=== PATIENT | female | born 1965 | race Caucasian/White ===

== ENCOUNTER 2017-11-28 11:10 | Observation (INO) ==
[2017-11-28] MEDS ORDERED: Aspirin 81 MG TAB.CHEW PO ONE (12:26)
--- NOTE | 2017-11-28 12:33 | Emergency Department Note ---
Disposition Clinical Impression: Acute coronary syndrome Disposition: Admitted As Inpatient Condition: Fair Referrals: Suzan Luke DO [Primary Care Provider] - Forms: ED Satisfaction Letter Time of Disposition: 14:21 Chest Pain HPI - General Chief Complaint: ED Chest Pain Stated Complaint: L arm/shoulder/back pain Source: patient Limitations: no limitations Vital Signs Reviewed: Yes Nursing Notes Reviewed: Yes - History of Present Illness HPI Narrative: She has chest pain which is a tightness sensation and has been present intermittently for the last 1 week with episodes lasting up to several hours at a time with radiation to left shoulder and neck and left jaw with associated dyspnea but no diaphoresis. No pleuritic aspect. Does not radiate straight through to the back but the shoulder pain does extend over into the back. The discomfort is worse with exertion and no pain or swelling of the lower extremities. Social history: No smoking or alcohol or drugs. Family history: Positive for heart disease with her mother Severity scale (1-10): 7 - Related Data Home Medications Medication Instructions Recorded Confirmed Aspirin [Lo-Dose Aspirin EC] 81 mg PO DAILY 11/28/17 11/28/17 Atorvastatin [Lipitor] 40 mg PO HS 11/28/17 11/28/17 Cetirizine HCl [All Day Allergy] 10 mg PO DAILY 11/28/17 11/28/17 Duloxetine HCl [Cymbalta] 60 mg PO BID 11/28/17 11/28/17 LORazepam [Ativan] 0.5 mg PO BID PRN 11/28/17 11/28/17 Montelukast [Singulair] 10 mg PO DAILY 11/28/17 11/28/17 Mv,Fe,Min/Lutein [A Thru Z Select 1 tab PO DAILY 11/28/17 11/28/17 Women's Tablet] NIFEdipine [Nifedipine ER] 60 mg PO DAILY 11/28/17 11/28/17 Spironolact/Hydrochlorothiazid 1 tab PO DAILY 11/28/17 11/28/17 [Aldactazide 25-25 Tablet] Allergies Allergy/AdvReac Type Severity Reaction Status Date / Time Sulfa (Sulfonamide Allergy Hives Verified 11/28/17 12:55 Antibiotics) Review of Systems: Constitutional: No fever Vision: No blurred vision ENT: No rhinorrhea Respiratory: No cough Allergic: No allergies : No blood in urine GI: No blood in stool Hematologic: No bruising Dermatologic: No skin rash Musculoskeletal: No pain in the extremities Neuro: No numbness of the extremities Chest Pain PMH - Past Medical History Medical history: Reports: hyperlipidemia, hypertension Psychiatric history: Reports: anxiety, depression - Social History Smoking Status: Never smoker Alcohol use: Reports: occasionally Drug use: Reports: none Physical Exam CONSTITUTIONAL: Well-appearing; well-nourished; A&O X 3, in no apparent distress HEAD: Normocephalic; atraumatic EYES: PERRL, no scleral icterus NOSE: The nose is normal in appearance without rhinorrhea NECK: No JVD or distended neck veins RESP: Normal chest excursion with respiration; breath sounds clear and equal bilaterally; no wheezes, rhonchi, or rales CARD: Regular rhythm, without murmurs, rub or gallop ABD: Non-distended; non-tender, soft, without rigidity, rebound or guarding,no pulsatile mass CHEST: Mild pain with palpation, normal appearance anterior chest wall SKIN: Normal for age and race; warm and dry without diaphoresis ; no apparent lesions EXTREMITIES: Pulses are 2 plus and equal times 4 extremities, no peripheral edema or calf muscle pain - General Limitations: no limitations General appearance: alert Course Vital Signs Temperature 98.6 F 11/28/17 11:12 Pulse Rate 79 11/28/17 11:12 Respiratory Rate 18 11/28/17 11:12 Blood Pressure 138/85 11/28/17 11:12 O2 Sat by Pulse Oximetry 98 11/28/17 11:12 Temperature 98.6 F 11/28/17 11:12 Pulse Rate 76 11/28/17 14:13 Respiratory Rate 16 11/28/17 14:13 Blood Pressure 133/84 11/28/17 14:13 O2 Sat by Pulse Oximetry 96 11/28/17 14:13 Oxygen Delivery Oxygen Delivery Room Air Chest Pain - MDM Narrative Medical decision making narrative: I did review the EKG which does show normal sinus rhythm without acute ischemic changes. No T wave inversion. No evidence of arrhythmia. Patient's symptoms are very concerning and with the intermittent nature this is also concerning. Labs are pending. Chest x-ray. Patient will receive one aspirin 324 mg. 1232 Patient does have concerning findings for acute coronary syndrome and I did review the test results as well as the EKG and the chest x-ray which came back negative and I did speak with the hospitalist who accepts the patient for admission. The patient has received one aspirin. I did check on her again. She is pain-free at this time. I do not suspect pulmonary embolism, there is no pleuritic aspect or other concern. Her oxygen saturation is 97% on room air. The patient is admitted. 1421 - Medical Records Medical records reviewed: Yes I reviewed the patient's medical records. - Lab Data Lab results reviewed: Yes I reviewed the patient's lab results. Result diagrams: 11/28/17 12:35 11/28/17 12:35 Lab Results 11/28/17 11/28/17 Range/Units 12:35 12:35 WBC 9.5 (4.3-11.1) K/mcL RBC 5.14 H (3.82-4.97) M/mcL Hgb 14.6 (11.5-15.4) g/dL Hct 44.5 (35.3-44.9) % MCV 86.6 (83.0-100.0) fL MCH 28.4 (28.0-33.3) pg MCHC 32.8 (31.6-35.5) g/dL RDW 13.6 (11.5-14.5) % Plt Count 349 (140-400) K/mcL MPV 9.9 (9.4-12.4) fL Immature Gran % 0.2 (0-4) % Seg Neutrophils % 62.9 % Lymphocytes % 30.7 % Monocytes % 4.2 % Eosinophils % 1.2 % Basophils % 0.8 % Neutrophils # 6.0 (1.6-8.9) K/mcL Lymphocytes # 2.9 (0.6-4.6) K/mcL Monocytes # 0.4 (0.0-1.3) K/mcL Eosinophils # 0.1 (0.0-0.6) K/mcL Basophils # 0.1 (0.0-0.2) K/mcL Sodium 137 (136-145) mEq/L Potassium 3.6 (3.5-5.1) mEq/L Chloride 99 (98-107) mEq/L Carbon Dioxide 27 (23-29) mEq/L BUN 14 (6-20) mg/dL Creatinine 0.85 (0.60-1.20) mg/dL Est GFR ( Amer) > 60 (> 60) Est GFR (Non-Af Amer) > 60 (> 60) BUN/Creatinine Ratio 16 (6-26) Glucose 149 H (70-105) mg/dL Calculated Osmolality 287 (280-300) Calcium 9.6 (8.6-10.3) mg/dL Troponin I < 0.03 (< 0.04) ng/mL - Radiology Data Radiology results reviewed: Yes I reviewed the patient's radiology results.
[2017-11-28 13:08] LABS: Basophils # 0.1 K/mcL (0.0-0.2); Basophils % 0.8 %; Eosinophils # 0.1 K/mcL (0.0-0.6); Eosinophils % 1.2 %; Hematocrit 44.5 % (35.3-44.9); Hemoglobin 14.6 g/dL (11.5-15.4); Immature Granulocytes % 0.2 % (0-4); Lymphocytes # 2.9 K/mcL (0.6-4.6); Lymphocytes % 30.7 %; Mean Corpuscular HGB Conc 32.8 g/dL (31.6-35.5); Mean Corpuscular Hemoglobin 28.4 pg (28.0-33.3); Mean Corpuscular Volume 86.6 fL (83.0-100.0); Mean Platelet Volume 9.9 fL (9.4-12.4); Monocytes # 0.4 K/mcL (0.0-1.3); Monocytes % 4.2 %; Platelet Count 349 K/mcL (140-400); Red Blood Count 5.14 M/mcL (3.82-4.97); Red Cell Distribution Width 13.6 % (11.5-14.5); Segmented Neutrophils % 62.9 %
--- NOTE | 2017-11-28 13:19 | Electrocardiograph Report ---
[facility] Test Date: 2017-11-28 Pat Name: Amy Coleman Department: 104 Room: Gender: F Screen Vent Binder: : [id number] Requested By: Ariel Santamaria Order Number: [id number] Reading MD: Lance Ibarra MD Measurements Intervals [place] Rate: 78 P: 29 UT: 168 QRS: 13 QRSD: 96 T: 40 QT: 387 QTc: 420 Interpretive Statements SINUS RHYTHM wnl Electronically Signed On 11-28-2017 13:18:22 EST by Lance Ibarra MD
[2017-11-28 13:27] LABS: Troponin I < 0.03 ng/mL (< 0.04)
[2017-11-28 13:29] LABS: BUN/Creatinine Ratio 16 (6-26); Blood Urea Nitrogen 14 mg/dL (6-20); Calcium 9.6 mg/dL (8.6-10.3); Carbon Dioxide 27 mEq/L (23-29); Chloride 99 mEq/L (98-107); Glucose 149 mg/dL (70-105); Osmolality,Calculated 287 (280-300); Potassium 3.6 mEq/L (3.5-5.1); Sodium 137 mEq/L (136-145); eGFR For African Americans > 60 (> 60); eGFR For Non-African Americans > 60 (> 60)
[2017-11-28] MEDS ORDERED: Ondansetron 4 MG/2 ML VIAL IVP PRN (14:40)
[2017-11-28] MEDS ORDERED: Acetaminophen 325 MG TABLET PO PRN (14:40)
[2017-11-28] MEDS ORDERED: *HR* HYDROcodone/Acet 5/325 mg TABLET PO PRN (14:40)
[2017-11-28] MEDS ORDERED: *HR* OxyCODONE Immed Rel 5 MG TABLET PO PRN (14:40)
[2017-11-28] MEDS ORDERED: Naloxone 0.4 MG/ML INJ IVP PRN (14:40)
[2017-11-28] MEDS ORDERED: Nitroglycerin 0.4 MG TAB.SUBL SL PRN (14:44)
[2017-11-28] MEDS ORDERED: *HR* LORazepam 0.5 MG TABLET PO PRN (14:45)
--- NOTE | 2017-11-28 14:50 | Internal Med History&Physical ---
Date of Encounter: 11/28/17 Time of Encounter: 14:48 Assessment and Plan (1) Chest pain Current visit: Yes Status: Acute Nitroglycerin as needed, telemetry, troponins Echocardiogram, schedule stress test Continue aspirin, check lipid panel Omeprazole for GI prophylaxis and Lovenox for DVT prophylaxis. The patient will be admitted for observation. Full code. Time spent on this admission 40 minutes Qualifiers: Chest pain type: other chest pain Qualified Code(s): R07.89 - Other chest pain; R07.8 - Other chest pain (2) Hypertension Current visit: Yes Status: Acute Continue home meds Qualifiers: Hypertension type: essential hypertension Qualified Code(s): I10 - Essential (primary) hypertension (3) Hyperlipidemia Current visit: Yes Status: Acute Qualifiers: Hyperlipidemia type: unspecified Qualified Code(s): E78.5 - Hyperlipidemia , unspecified (4) Depression Current visit: Yes Status: Acute Qualifiers: Depression Type: major depressive disorder Major depression recurrence: recurrent Active/Remission status: in full remission Qualified Code(s): F33.42 - Major depressive disorder, recurrent, in full remission (5) Hyperglycemia Current visit: Yes Status: Acute Check a hemoglobin A1c in the morning as the patient does not have a diagnosis of diabetes Internal Medicine - H&P: HPI Chief complaint: Chest pain Admitted From: Emergency Dept History of present illness: Ms. Coleman is a 52 year old female with a past medical history of hypertension and hyperlipidemia, anxiety, depression who comes to the emergency room complaining of chest pain, pressure-like radiating to the left arm and shoulder also the neck and the left side of her gel for the past week that lasts hours and gets worse on exertion. The patient denies any chest pain at the moment, but when he gets bad it is as high as 8 out of 10 in intensity. Chest x-ray and EKG are unremarkable: The patient does not have a diagnosis of diabetes but her glucose is 149. Blood pressure is 138/85, she has been feeling nauseous, no other symptoms. Received aspirin at the emergency room. Troponin is normal Past Med Surg Social Fam HX - Past Medical History Medical history: hyperlipidemia, hypertension Psychiatric history: anxiety, depression - Past Surgical History Surgical History: (2), hysterectomy, other (Hysterectomy) - Social History Smoking Status: Never smoker Smokeless Tobacco Status: No Alcohol use: occasionally Drug use: none - Additional Family History Additional family history: Mother with CVA and heart disease Internal Medicine - H&P: Meds Aspirin [Lo-Dose Aspirin EC] 81 mg PO DAILY 11/28/17 [History] Atorvastatin [Lipitor] 40 mg PO HS 11/28/17 [History] Cetirizine HCl [All Day Allergy] 10 mg PO DAILY 11/28/17 [History] Duloxetine HCl [Cymbalta] 60 mg PO BID 11/28/17 [History] LORazepam [Ativan] 0.5 mg PO BID PRN 11/28/17 [History] Montelukast [Singulair] 10 mg PO DAILY 11/28/17 [History] Mv,Fe,Min/Lutein [A Thru Z Select Women's Tablet] 1 tab PO DAILY 11/28/17 [ History] NIFEdipine [Nifedipine ER] 60 mg PO DAILY 11/28/17 [History] Spironolact/Hydrochlorothiazid [Aldactazide 25-25 Tablet] 1 tab PO DAILY [History] 3 Allergy/AdvReac Type Severity Reaction Status Date / Time Sulfa (Sulfonamide Allergy Hives Verified 11/28/17 12:55 Antibiotics) All Systems PM: A 10-system review of systems was performed and is negative for pertinent findings except as documented above in the HPI. Review of systems: No shortness of breath, no fevers or chills, other systems out of the 10 reviewed were negative - Constitutional Vitals: Temp Pulse Resp BP Pulse Ox 98.6 F 76 16 133/84 96 11/28/17 11:12 11/28/17 14:13 11/28/17 14:13 11/28/17 14:13 11/28/17 14:13 General appearance: Present: A&O X 3 - Head Head exam: Present: atraumatic, normocephalic - Eye Eye exam: Present: PERRL, conjuntiva pink, sclera anicteric Pupils: Present: PERRL - Neck Neck exam general surgery: Present: supple, trachea midline. Absent: lymphadenopathy - Respiratory Respiratory exam: Present: CTAB. Absent: accessory muscle use, rales, rhonchi, wheezes - Cardiovascular Cardiovascular exam: Present: RRR, +S1, +S2. Absent: diastolic murmur, gallop, rubs, systolic murmur - GI/Abdominal GI/Abdominal exam: Present: normal bowel sounds, soft, no peritoneal signs. Absent: distended, tenderness - Extremities Exam Extremities exam: Present: warm, radial pulses palpable and symmetrical. Absent : calf tenderness, cyanotic, pedal edema - Neurological Exam Neurological exam: Present: CN II-XII intact, oriented X3, no focal deficits. Absent: pronater drift, facial droop, speech deficit - Skin Skin exam: Present: dry, intact Internal Med - H&P Results - Labs CBC & Chem 7: 11/28/17 12:35 11/28/17 12:35
[2017-11-28] MEDS: *HR* Enoxaparin 40 MG/0.4 ML SYRINGE SQ SCH (17:59)
[2017-11-29 00:36] LABS: BUN/Creatinine Ratio 18 (6-26); Blood Urea Nitrogen 15 mg/dL (6-20); Calcium 9.3 mg/dL (8.6-10.3); Carbon Dioxide 29 mEq/L (23-29); Chloride 100 mEq/L (98-107); Chol/HDL Ratio 4.6 (0-4.9); Cholesterol 181 mg/dL (< 200); Glucose 148 mg/dL (70-105); HDL Cholesterol 39 mg/dL (40-59); LDL Cholesterol,Calculated 110 mg/dL (0-99); Osmolality,Calculated 290 (280-300); Potassium 3.4 mEq/L (3.5-5.1); Sodium 138 mEq/L (136-145); Triglycerides 159 mg/dL (< 150); eGFR For African Americans > 60 (> 60); eGFR For Non-African Americans > 60 (> 60)
[2017-11-29] MEDS ORDERED: Regadenoson 0.4 MG/5 ML SYRINGE IVP ONE (05:37)
[2017-11-29] MEDS: *HR* Enoxaparin 40 MG/0.4 ML SYRINGE SQ SCH (06:03)
[2017-11-29] MEDS ORDERED: NON-FORMULARY MEDICATION 1 EACH EACH (Spironolact/Hydrochlorothiazid [Aldactazide 25-25 Ta PO SCH (09:00)
[2017-11-29] MEDS: Loratadine 10 MG TABLET PO SCH (09:27)
[2017-11-29] MEDS: hydroCHLOROthiazide 25 MG TABLET PO SCH (09:28)
[2017-11-29] MEDS: Spironolactone 25 MG TABLET PO SCH (09:28)
[2017-11-29] MEDS: Aspirin Enteric Coated 325 MG Tablet PO SCH (09:28)
[2017-11-29] MEDS: NIFEdipine XL (24 HR) 60 MG TAB.ER.24 PO SCH (09:28)
[2017-11-29 09:41] LABS: Hemoglobin A1C 6.5 %
--- NOTE | 2017-11-29 17:16 | Internal Med Progress Note ---
Date of Encounter: 11/29/17 Time of Encounter: 17:13 - Assessment and plan (1) Chest pain Current Visit: Yes Status: Acute Assessment and plan: Patient had step 1 of her two-part stress test today. Troponins are negative Echocardiogram report reviewed Continue aspirin lipid panel Continue telemetry monitoring Nitroglycerin as needed Qualifiers: Chest pain type: other chest pain Qualified Code(s): R07.89 - Other chest pain; R07.8 - Other chest pain (2) Hyperglycemia Current Visit: Yes Status: Acute Assessment and plan: Glucose is slightly elevated. 11 A1c is 6.5 We will defer to her PCP for management as he do not want to start a oral agent in house. Diabetic diet (3) Hyperlipidemia Current Visit: Yes Status: Acute Assessment and plan: With panel reviewed triglycerides 159, LDL 110, HDL 39 Continue Lipitor Qualifiers: Hyperlipidemia type: unspecified Qualified Code(s): E78.5 - Hyperlipidemia , unspecified (4) Hypertension Current Visit: Yes Status: Acute Assessment and plan: Pressure is stable next line continue home meds Qualifiers: Hypertension type: essential hypertension Qualified Code(s): I10 - Essential (primary) hypertension (5) DVT prophylaxis Current Visit: Yes Status: Acute Assessment and plan: heparin subcut - Subjective Interval history: Resting in bed complaining of a slight headache. She states she does have a little bit of shoulder discomfort. She states she is to finish her stress test tomorrow. She was concerned there was a problem and I explained why we do a two -step stress test and now she is much more relieved. - Constitutional Vitals: Temp Pulse Resp BP Pulse Ox 98.7 F 78 20 126/84 95 11/29/17 15:27 11/29/17 15:27 11/29/17 15:27 11/29/17 15:27 11/29/17 15:27 General appearance: Present: cooperative, A&O X 3, pleasant, obese, answers questions appropriately - Head Head exam: Present: atraumatic, normocephalic - Eye Eye exam: Present: PERRL, conjuntiva pink, sclera anicteric Pupils: Present: PERRL - Neck Neck exam general surgery: Present: supple, trachea midline. Absent: lymphadenopathy - Respiratory Respiratory exam: Present: CTAB. Absent: accessory muscle use, rales, rhonchi, wheezes - Cardiovascular Cardiovascular exam: Present: RRR, +S1, +S2. Absent: diastolic murmur, gallop, rubs, systolic murmur - GI/Abdominal GI/Abdominal exam: Present: normal bowel sounds, soft, no peritoneal signs. Absent: distended, tenderness - Extremities Exam Extremities exam: Present: warm, radial pulses palpable and symmetrical. Absent : calf tenderness, cyanotic, pedal edema - Neurological Exam Neurological exam: Present: alert, CN II-XII intact, normal gait, oriented X3, no focal deficits, strengths equal and symetr throughout. Absent: pronater drift, facial droop, speech deficit - Skin Skin exam: Present: dry, intact, normal color, warm Internal Medicine: Result - Labs CBC & Chem 7: 11/28/17 12:35 11/29/17 00:05 Labs: BMP 11/29/17 00:05 Sodium 138 Potassium 3.4 L Chloride 100 Carbon Dioxide 29 BUN 15 Creatinine 0.83 Glucose 148 H Calcium 9.3 Cardiac Enzymes 11/28/17 11/29/17 11/29/17 Range/Units 17:57 00:05 06:01 Troponin I < 0.03 < 0.03 < 0.03 (< 0.04) ng/mL - Impressions Impressions Echocardiogram 11/28/17 14:53 Impressions: LVEF 60-65%. Normal LV chamber size, wall thickness and function. Mild left ventricular diastolic dysfunction. Normal right ventricular structure and function. No evidence of pulmonary hypertension. No significant valvular dysfunction. Left Ventricular Wall Motion: Rest Echo Findings All wall segments showed normal motion. Findings: Study Quality * Technically adequate exam. ECG Findings * Normal sinus rhythm. Left Ventricle * LVEF 60-65%. * Normal LV chamber size, wall thickness and function. * Mild left ventricular diastolic dysfunction. Right Ventricle * Normal right ventricular structure and function. Left Atrium * Mildly dilated left atrium. Right Atrium * Normal right atrial size. Interatrial Septum * Interatrial septum not well evaluated. Aortic Valve * Aortic valve not well visualized. * No aortic regurgitation. * No aortic stenosis. Mitral Valve * Normal mitral valve structure and function. * No mitral regurgitation. * No mitral stenosis. Tricuspid Valve * Normal tricuspid valve structure and function. * Trace tricuspid regurgitation. * No evidence of pulmonary hypertension. Pulmonic Valve * Pulmonic valve is not well visualized. Aorta * Normally sized aortic root. Pericardium * The pericardium appears normal. IVC * Normal IVC dimensions and inspiratory collapse. Pulmonary Artery * Normal visualized portions of the main pulmonary artery. Consult Discharge Plan - Plan Referrals: Suzan Luke DO [Primary Care Provider] -
[2017-11-30] MEDS: *HR* Enoxaparin 40 MG/0.4 ML SYRINGE SQ SCH (05:59)
[2017-11-30] MEDS: hydroCHLOROthiazide 25 MG TABLET PO SCH (08:36)
[2017-11-30] MEDS: NIFEdipine XL (24 HR) 60 MG TAB.ER.24 PO SCH (08:36)
[2017-11-30] MEDS: Aspirin Enteric Coated 325 MG Tablet PO SCH (08:36)
[2017-11-30] MEDS: Loratadine 10 MG TABLET PO SCH (08:36)
[2017-11-30] MEDS: Spironolactone 25 MG TABLET PO SCH (08:37)
[2017-11-30 11:10] VITALS: BP 100/67
--- NOTE | 2017-11-30 13:16 | Discharge Summary ---
- NOTES TO OUTPATIENT PROVIDER Notes to Outpatient Provider: HGB A1c 6.5, LP elevated triglycerides 159, LDL cholesterol 110, HDL cholesterol 39. Glucose fasting 149 and 148 Date of Encounter: 11/30/17 Time of Encounter: 13:13 - Discharge Diagnosis (1) Chest pain Priority: Primary Status: Acute Comments: Stress test completed Perfusion imaging was negative for ischemia or infarct Pharmacologic stress ECG is negative for ischemia at level of heart rate achieved no appreciable change and pharmacological ECG from baseline Gaited EF is greater than 70 Patient states she has been having some shoulder pain and is going to follow-up with the orthopod, she was wondered if this could be referred pain from her shoulder. The pain is not reproducible Qualifiers: Chest pain type: other chest pain Qualified Code(s): R07.89 - Other chest pain; R07.8 - Other chest pain (2) Hyperglycemia Priority: Primary Status: Acute Comments: Hemoglobin A1c 6.5, fasting glucose elevated, told her she is likely a diabetic and needs a follow-up with her PCP (3) Hyperlipidemia Priority: Primary Status: Chronic Comments: Continue Lipitor Qualifiers: Hyperlipidemia type: unspecified Qualified Code(s): E78.5 - Hyperlipidemia , unspecified (4) Hypertension Priority: Primary Status: Chronic Comments: Blood pressure stable Qualifiers: Hypertension type: essential hypertension Qualified Code(s): I10 - Essential (primary) hypertension (5) Obesity Priority: Primary Status: Acute Comments: Discussed with the patient that her obesity is contributing to her blood glucose and diabetes, her blood pressure, and her elevated lipid panel. Discussed need to modify her lifestyle by a healthier diet and more exercise. Instructed her to follow up with her PCP regarding her blood sugar elevation. She verbalized understanding that her sister is diabetic and is already lost part of her foot. She said I know what a need to do I just need to do it. Qualifiers: Obesity type: unspecified obesity type Serious obesity comorbidity presence : without serious comorbidity Body mass index: BMI 40.0-44.9 Qualified Code( s): E66.9 - Obesity, unspecified; Z68.41 - Body mass index (BMI) 40.0-44.9, adult; Z68.41 - Body mass index (BMI) 40.0-44.9, adult; Z68.41 - Body mass index (BMI) 40.0-44.9, adult; Z68.41 - Body mass index (BMI) 40.0-44.9, adult Hospital course: Ms. Coleman is a 52 year old female admitted with diagnosis of chest pain. He has come morbidities of hypertension, hyperlipidemia, anxiety, depression and previous history of hyperglycemia. 18 was pressure like radiating to her left arm and shoulder and neck. She states she has been having some chronic shoulder pain and was going to come follow-up with orthopedic service. Echocardiogram was reviewed with LVEF 60-65%, normal LV chamber size wall thickness and function. Mild left ventricular diastolic dysfunction. Normal right ventricular structure and function, no evidence of pulmonary hypertension and no significant valvular dysfunction. Stress test was negative for infarct or ischemia. She will follow-up with her primary care physician with elevated lipids on Lipitor, elevated triglycerides, elevated fasting glucose and hemoglobin A1c of 6.5. Discussed weight loss measures and activity lifestyle changes. She verbalized understanding of knowing what to do she just needs to do it. Discharge discussed with: patient, family, nurse - Time Spent with Patient Total time spent providing and/or coordinating discharge services: Less than 30 minutes - Discharge Medications Home Medications: Aspirin [Lo-Dose Aspirin EC] 81 mg PO DAILY 11/28/17 [History] Atorvastatin [Lipitor] 40 mg PO HS 11/28/17 [History] Cetirizine HCl [All Day Allergy] 10 mg PO DAILY 11/28/17 [History] Duloxetine HCl [Cymbalta] 60 mg PO BID 11/28/17 [History] LORazepam [Ativan] 0.5 mg PO BID PRN 11/28/17 [History] Montelukast [Singulair] 10 mg PO DAILY 11/28/17 [History] Mv,Fe,Min/Lutein [A Thru Z Select Women's Tablet] 1 tab PO DAILY 11/28/17 [ History] NIFEdipine [Nifedipine ER] 60 mg PO DAILY 11/28/17 [History] Spironolact/Hydrochlorothiazid [Aldactazide 25-25 Tablet] 1 tab PO DAILY [History] Allergies/Adverse Reactions: 3 Allergy/AdvReac Type Severity Reaction Status Date / Time Iodinated Contrast- Oral and Allergy Difficulty Verified 11/28/17 18:22 IV Dye Breathing Sulfa (Sulfonamide Allergy Hives Verified 11/28/17 12:55 Antibiotics) Date of admission: 11/28/17 14:43 Primary care physician: Ronit Kaminski Discharging clinician: Lilia Hawthorne Anticipated date of discharge: 11/30/17 - Constitutional Vitals: Temp Pulse Resp BP Pulse Ox 97.8 F 84 16 100/67 97 11/30/17 11:07 11/30/17 11:07 11/30/17 11:07 11/30/17 11:07 11/30/17 11:07 General appearance: Present: cooperative, A&O X 3, pleasant, obese, answers questions appropriately - Head Head exam: Present: atraumatic, normocephalic - Eye Eye exam: Present: PERRL, conjuntiva pink, sclera anicteric Pupils: Present: PERRL - Neck Neck exam general surgery: Present: supple, trachea midline. Absent: lymphadenopathy - Respiratory Respiratory exam: Present: CTAB. Absent: accessory muscle use, rales, rhonchi, wheezes - Cardiovascular Cardiovascular exam: Present: RRR, +S1, +S2. Absent: diastolic murmur, gallop, rubs, systolic murmur - GI/Abdominal GI/Abdominal exam: Present: normal bowel sounds, soft, no peritoneal signs. Absent: distended, tenderness - Extremities Exam Extremities exam: Present: warm, radial pulses palpable and symmetrical. Absent : calf tenderness, cyanotic, pedal edema - Neurological Exam Neurological exam: Present: CN II-XII intact, oriented X3, no focal deficits. Absent: pronater drift, facial droop, speech deficit - Skin Skin exam: Present: dry, intact, normal color, warm - Patient Status Disposition: Home, Self-Care Condition: Fair Functional capacity at discharge: independent ambulation Overall status at discharge: patient is back to baseline - Discharge Instructions Follow Up With: Suzan Luke DO [Primary Care Provider] - - Diet and Activity Activity: resume usual activities as tolerated Diet: diabetic diet, low fat, low cholesterol
== END 2017-11-30 14:20 | disposition home or self-care (01) ==
LOC: EMEROO 11:10 → 3BNU 11:10
PROVIDERS: ADMIT Family Medicine; ATTEND Family Medicine